=== PATIENT | male | born 1955 | race Caucasian/White ===

== ENCOUNTER 2017-07-19 16:11 | Emergency (ER) | payer OTHER ==
--- NOTE | 2017-07-19 16:21 | UC ---
Respiratory Complaint HPI - HPI Summary HPI Summary: 61 YEAR OLD MALE PRESENTS WITH COMPLAINS OF COUGH, AND CHEST CONGESTION. - History of Current Complaint Stated Complaint: CHEST CONGESTION Time Seen by Provider: 07/19/17 16:21 Hx Obtained From: Patient Onset/Duration: Gradual Onset Severity Initially: Moderate Severity Currently: Moderate Pain Scale Used: 0-10 Numeric - 4 Character: Cough: Productive Alleviating Factors: Bronchodilator Associated Signs And Symptoms: Positive: Wheezing, Dizziness Related History: Seasonal Allergies - Allergies/Home Medications Allergies/Adverse Reactions: Allergies Allergy/AdvReac Type Severity Reaction Status Date / Time Fentanyl Allergy Severe CONFUSION, Verified 07/19/17 16:22 AGGITATION, AGRESSIVNESS Penicillins Allergy Severe anaphylaxis Verified 07/19/17 16:22 Home Medications: Home Medications Acetaminophen [Acetaminophen Extra Stren] 1,000 mg PO TID 07/19/17 [History Confirmed 07/19/17] Atorvastatin* [Lipitor 20 MG*] 20 mg PO DAILY 07/19/17 [History Confirmed ] Dapagliflozin Propanediol [Farxiga] 5 mg PO DAILY 07/19/17 [History Confirmed ] Oxycodone TAB(NF) [Oxycodone HCl 10 MG] 10 mg PO DAILY 07/19/17 [History Confirmed 07/19/17] PMH/Surg Hx/FS Hx/Imm Hx Previously Healthy: Yes - Surgical History Surgical History: None Surgery Procedure, Year, and Place: TMA, Bypass- femoral. Small intestinal blockage- surgical removal of some of the small intestine. - Social History Alcohol Use: None Substance Use Type: None Smoking Status (MU): Former Smoker Review of Systems Constitutional: Negative Skin: Negative Eyes: Negative ENT: Negative Respiratory: Shortness Of Breath, Cough Cardiovascular: Negative Gastrointestinal: Negative Genitourinary: Negative Motor: Negative Neurovascular: Negative Musculoskeletal: Negative Neurological: Negative Psychological: Negative All Other Systems Reviewed And Are Negative: Yes Physical Exam Triage Information Reviewed: Yes Eye Exam: Normal ENT Exam: Normal Dental Exam: Normal Neck exam: Normal Neck: Positive: 1 Respiratory: Positive: Decreased breath sounds, Rhonchi, Wheezing Cardiovascular Exam: Normal Abdominal Exam: Normal Musculoskeletal Exam: Normal Neurological Exam: Normal Psychological Exam: Normal Skin Exam: Normal Respiratory Course/Dx - Differential Dx/Diagnosis Provider Diagnoses: CHEST CONGESTION. COUGH Discharge - Discharge Plan Condition: Stable Disposition: HOME Prescriptions: Albuterol HFA INHALER* [Ventolin HFA Inhaler*] 1 puff INH Q6H PRN #1 mdi PRN Reason: Wheezing Azithromyxin RAGINI (NF) [Z-Ragini (Zithromax) 250 mg tabs #6] 2 tab PO .TODAY, THEN 1 DAILY #6 tab guaiFENesin/CODIEN 100MG-10MG* [Robitussin AC 100Mg-10Mg*] 5 ml PO Q6H PRN #120 ml MDD 20 ML PRN Reason: Cough predniSONE TAB* [Deltasone TAB*] 40 mg PO DAILY #10 tab Patient Education Materials: COPD (Chronic Obstructive Pulmonary Disease) (ED) Referrals: EMERY Vizcaino [Primary Care Provider] -
[2017-07-19 16:48] VITALS: BP 128/71
== END 2017-07-19 16:55 | disposition home or self-care (01) ==
LOC: UCCORT 16:11
DX: R05 Cough (principal); R09.89 Other specified symptoms and signs involving the circulatory and respiratory systems; Z88.0 Allergy status to penicillin; Z87.891 Personal history of nicotine dependence
CPT/HCPCS: 99212; G0463

== ENCOUNTER 2018-03-17 16:29 | Emergency (ER) | payer OTHER ==
[2018-03-17 17:26] VITALS: BP 142/69
--- NOTE | 2018-03-17 17:49 | UC ---
Throat Pain/Nasal Hussein HPI - HPI Summary HPI Summary: Pt c/o sore throat, nasal congestion, cough, itchy, watery eyes, ear fullness, sneezing X 3 days. - History of Current Complaint Hx Obtained From: Patient Onset/Duration: Gradual Onset, Lasting Days, Still Present Severity: Moderate Pain Intensity: 3 Cough: Nonproductive Associated Signs & Symptoms: Positive: Dysphagia, Hoarseness - Epiglottits Risk Factors Epiglottis Risk Factors: Negative <Yanelis Isbell NP - Last Filed: 03/17/18 17:52> <Ivania Coleman - Last Filed: 03/17/18 18:41> - History of Current Complaint Chief Complaint: UCRespiratory Stated Complaint: SORE THROAT Time Seen by Provider: 03/17/18 17:20 - Allergies/Home Medications Allergies/Adverse Reactions: Allergies Allergy/AdvReac Type Severity Reaction Status Date / Time fentanyl Allergy Agitation Verified 03/17/18 17:23 Penicillins Allergy Anaphylatic Verified 03/17/18 17:23 Shock Home Medications: Home Medications Acetaminophen [Tylenol Extra Strength] 1,000 mg PO QID 03/17/18 [History Confirmed 03/17/18] Aspirin 81 mg CHEW TAB* 81 mg PO DAILY 03/17/18 [History Confirmed 03/17/18] Dapagliflozin Propanediol [Farxiga] 5 mg PO DAILY 03/17/18 [History Confirmed ] Gabapentin CAP(*) [Neurontin 300 CAP(*)] 900 mg PO BID 03/17/18 [History Confirmed 03/17/18] Lisinopril TAB* [Prinivil TAB 10 MG*] 30 mg PO DAILY 03/17/18 [History Confirmed 03/17/18] Metoprolol Tartrate TAB* [Lopressor TAB*] 25 mg PO BID 03/17/18 [History Confirmed 03/17/18] Pantoprazole TAB (NF) [Protonix TAB (NF)] 40 mg PO DAILY 03/17/18 [History Confirmed 03/17/18] Sertraline* [Zoloft*] 100 mg PO DAILY 03/17/18 [History Confirmed 03/17/18] Tamsulosin CAP* [Flomax CAP*] 0.4 mg PO DAILY 03/17/18 [History Confirmed ] Trospium (NF) [Sanctura (NF)] 60 mg PO DAILY 03/17/18 [History Confirmed ] glipiZIDE TAB* [Glucotrol TAB*] 5 mg PO BID 03/17/18 [History Confirmed 03/17/18 ] metFORMIN* [Glucophage 1000 MG TAB *] 1,000 mg PO BID 03/17/18 [History Confirmed 03/17/18] PMH/Surg Hx/FS Hx/Imm Hx Previously Healthy: No Endocrine History: Diabetes, Dyslipidemia Cardiovascular History: Cardiac Disease, Hypertension Respiratory History: COPD - Surgical History Surgical History: Yes Surgery Procedure, Year, and Place: TMA, Bypass- femoral. Small intestinal blockage- surgical removal of some of the small intestine. - Family History Known Family History: Positive: Cardiac Disease - Social History Occupation: Retired Lives: With Family Alcohol Use: Occasionally Substance Use Type: None Smoking Status (MU): Former Smoker Have You Smoked in the Last Year: No When Did the Patient Quit Smoking/Using Tobacco: 2011 <Yanelis Isbell NP - Last Filed: 03/17/18 17:52> Review of Systems Constitutional: Fever - subjective, Chills Skin: Negative Eyes: Negative ENT: Sore Throat, Sinus Congestion Respiratory: Shortness Of Breath - baseline, Cough Cardiovascular: Negative Gastrointestinal: Negative Genitourinary: Negative Motor: Negative Neurovascular: Negative Musculoskeletal: Negative Neurological: Negative Psychological: Negative Is Patient Immunocompromised?: No All Other Systems Reviewed And Are Negative: Yes <Yanelis Isbell NP - Last Filed: 03/17/18 17:52> Physical Exam Triage Information Reviewed: Yes Appearance: Ill-Appearing Vital Signs: Initial Vital Signs Temp 98 F 03/17/18 17:18 Pulse 66 03/17/18 17:18 Resp 17 03/17/18 17:18 BP 142/69 03/17/18 17:18 Pulse Ox 96 03/17/18 17:18 Vital Signs Reviewed: Yes Eye Exam: Normal ENT Exam: Other ENT: Positive: Nasal congestion, TM bulging - bialteral, Tonsillar swelling Dental Exam: Normal Neck exam: Normal Respiratory: Positive: Decreased breath sounds Cardiovascular: Positive: Murmur:Sys:Grade _?_/ Musculoskeletal: Positive: Other: - partial foot amputation Neurological Exam: Normal Psychological Exam: Normal Skin Exam: Normal, Other - multiple surgical scars, abdomen, right wrist, right elbow, sternal <Yanelis Isbell NP - Last Filed: 03/17/18 17:52> Vital Signs: Initial Vital Signs Temp 98 F 03/17/18 17:18 Pulse 66 03/17/18 17:18 Resp 17 03/17/18 17:18 BP 142/69 03/17/18 17:18 Pulse Ox 96 03/17/18 17:18 <Ivania Coleman - Last Filed: 03/17/18 18:41> Throat Pain/Nasal Course/Dx - Differential Dx/Diagnosis Differential Diagnosis/HQI/PQRI: Pharyngitis, URI Provider Diagnoses: allergic rhinitis. pharyngitis <Yanelis Isbell NP - Last Filed: 03/17/18 17:52> Discharge - Sign-Out/Discharge Documenting (check all that apply): Discharge - Billing Disposition and Condition Condition: STABLE Disposition: HOME <Yanelis Isbell NP Last Filed: 03/17/18 17:52> - Billing Disposition and Condition Condition: STABLE Disposition: HOME <Ivania Coleman - Last Filed: 03/17/18 18:41> - Discharge Plan Condition: Stable Disposition: HOME Prescriptions: Azithromycin 500 mg PO DAILY #5 tab Cetirizine* [ZyrTEC 10 MG TAB*] 10 mg PO DAILY #20 tab Patient Education Materials: Pharyngitis (ED), Allergies (ED) Referrals: Sully Ramsay MD [Primary Care Provider] - Additional Instructions: Please follow up with your PCP or return to clinic as needed. Attestation Statement User Type: Provider - I was available for consult. This patient was seen by the [facility]. The patient was not presented to, seen by, or examined by me. -Emily <Ivania Coleman - Last Filed: 03/17/18 18:41>
== END 2018-03-17 17:57 | disposition home or self-care (01) ==
LOC: UCCORT 16:29
DX: J02.9 Acute pharyngitis, unspecified (principal); J30.9 Allergic rhinitis, unspecified; E11.9 Type 2 diabetes mellitus without complications; I10 Essential (primary) hypertension; J44.9 Chronic obstructive pulmonary disease, unspecified; L90.5 Scar conditions and fibrosis of skin; Z88.6 Allergy status to analgesic agent; Z88.0 Allergy status to penicillin; Z79.4 Long term (current) use of insulin; Z79.82 Long term (current) use of aspirin; Z79.899 Other long term (current) drug therapy; Z87.891 Personal history of nicotine dependence; Z89.439 Acquired absence of unspecified foot
CPT/HCPCS: 99212; G0463